=== PATIENT | male | born 1950 | race Caucasian/White ===

== ENCOUNTER → 2022-01-10 | Day surgery (SDC) | payer MEDICAID ==
[~2022-01-10] VITALS: Ht 172.7 cm; Wt 95.3 kg
[~2022-01-10] MED LIST: ACETAMINOPHEN 500MG TABLET ONE; BUPIVACAINE HCL/PF 0.5% (5MG/ML) 10ML ONE; CEFAZOLIN SODIUM 1000MG/VIAL ONE; CHOL-36 PO; DEXAMETHASONE 4MG/ML 1ML VIAL ONE; EPHEDRINE SULFATE 50MG/ML VIAL ONE; FENTANYL CITRATE/PF 50MCG/ML 2ML VIAL IV PRN; FENTANYL CITRATE/PF 50MCG/ML 2ML VIAL ONE; GLYCOPYRROLATE 0.2 MG/ML 2ML VIAL ONE; HYDROMORPHONE HCL/PF 2MG/ML CPJ IV PRN; LACTATED RINGERS 1,000 ML IV SCH; MULT-1146 PO; NEOSTIGMINE METHYLSULFATE 1MG/ML 10 ML VIAL ONE; OMEG100036 PO; ONDANSETRON HCL 4MG/2ML INJ ONE; PROPOFOL 200MG/20ML VIAL IV ONE; SKIN ADHESIVE 0.7 GM EA TOP ONE; SUCCINYLCHOLINE CHLORIDE 200MG/10ML IV ONE; UBID200C37 PO; VECURONIUM BROMIDE 10 MG/VIAL IV ONE
[2022-01-10 08:21] LABS: CHLORIDE 105 mEq/L (98-107)
== END | disposition home or self-care (01) ==
LOC: OR 06:12
PROVIDERS: ATTEND Surgery
DX: K42.9 Umbilical hernia without obstruction or gangrene (principal); I10 Essential (primary) hypertension; Z79.899 Other long term (current) drug therapy; Z98.890 Other specified postprocedural states; Z20.822 Contact with and (suspected) exposure to COVID-19
CPT/HCPCS: 36415; 49585; 80048; 87426; 88302; C1781; C9803; J0330; J0690; J1100; J2405; J2704; J2710; J3010; J3490